=== PATIENT | female | born 1950 | race Caucasian/White ===

== ENCOUNTER → 2016-05-09 | Outpatient (CLI) | payer OTHER ==
--- NOTE | ~2016-05-09 | US77 ---
[facility] A Service of [facility] & [facility] RADIOLOGY TEXT RESULTS PATIENT: AMANDA NEWMAN LOCATION: [facility] : 48 UNIT #: [id number] AGE: [address]: Jules Burgess MD SEX: F ORDER DR: [id number] [facility] [address] [place], [place] [address] [id number] O MR#: [id number] Acc #: [id number] NAME: AMANDA NEWMAN : 1950 SEX: F STUDY DATE/TIME: 05/09/2016 15:19 UNIT: [facility] ROOM: STUDY DESCRIPTION: US Kidney Bilateral Complete Attending Physician: Jules Burgess Jr., M.D. Referring Physician: Jules Burgess Jr., M.D. Ordering Physician: Jules Burgess Jr., M.D. Primary Care Physician: Jules Burgess Jr., M.D. MEDICAL IMAGING REPORT This report is preliminary unless electronic signature is present EXAM Renal ultrasound bilateral, 05/09/2016 INDICATION 65-year-old female with elevated serum creatinine. Abnormal laboratory data performed 05/03/2016. BUN 39, creatinine 1.1, GFR 51. TECHNIQUE Sonographic imaging of the kidneys was performed bilaterally. Correlation is made with CTA 01/2016. FINDINGS The right kidney measures about 10.5 x 4.7 x 5.1 cm and the left kidney measures about 10.6 cm x 5.9 cm x 5.4 cm. No hydronephrosis or shadowing stone on either side. Incidental benign cyst in the lower pole posterior right kidney measures up to 2.7 cm. Two benign cyst in the left kidney, one in the midpole measures 1.5 cm and a second in the lower pole measures 1.2 cm. The bladder is unremarkable for degree of distension. Left ureteral jet noted. IMPRESSION 1. No hydronephrosis or shadowing stone on either side. 2. Benign cysts bilaterally, the largest of which is a 2.7 cm cyst in the right kidney corresponding to a previously identified cyst on CT. 3. Bladder unremarkable. Dictated by... Gera L. Yewell, M.D. THIS IS AN ELECTRONICALLY VERIFIED REPORT Gera Wheeler M.D. at 05/10/2016 7:36 AM PITA/leila [facility] A Service of [facility] & [facility] RADIOLOGY TEXT RESULTS PATIENT: AMANDA NEWMAN LOCATION: [facility] #: [id number] : 48 UNIT #: [id number] AGE: [address]: Jules Burgess MD SEX: F ORDER DR: TD: 05/10/2016 04:04 JOB #: [id number] MEDICAL IMAGING REPORT COPY
== END | disposition home or self-care (01) ==
LOC: CGUS 15:07
DX: R74.9 Abnormal serum enzyme level, unspecified (principal); N28.1 Cyst of kidney, acquired
CPT/HCPCS: 76770

== ENCOUNTER 2016-06-10 17:10 | Emergency (ER) | payer OTHER ==
[2016-06-10 16:50] LABS: URINE SOURCE CLEAN CATCH
[2016-06-10 17:09] LABS: URINE APPEARANCE CLEAR; URINE BILIRUBIN NEG (NEG); URINE BLOOD TRACE (NEG); URINE COLOR YELLOW; URINE GLUCOSE NEG (NEG); URINE KETONE NEG (NEG); URINE LEUKOCYTE ESTERASE TRACE (NEG); URINE NITRATE NEG (NEG); URINE PROTEIN NEG (NEG); URINE SPECIFIC GRAVITY 1.015 (1.003-1.035); URINE UROBILINOGEN 0.2 MG/DL (NEG)
[2016-06-10 17:11] LABS: URBCS1 AUWI 0-2 /[HPF] (0-2); URINE BACTERIA AUWI NEG (NEGATIVE); URINE SQUAMOUS EPITHELIAL CELL OCC /[HPF]
[2016-06-10 17:12] LABS: CULTURE INDICATED? NO
[2016-06-10 17:21] LABS: BUN/CREATININE RATIO 28.57; CALCIUM SERUM 9.3 mg/dL (8.4-10.2); CREATININE SERUM 0.7 mg/dL (0.6-1.4); GLOM FILT RATE Estimated 89.7 mL/min (>60); POTASSIUM 4.1 mmol/L (3.5-5.1)
== END 2016-06-10 18:22 | disposition home or self-care (01) ==
LOC: CED 17:10
PROVIDERS: Emergency Medicine
DX: R60.0 Localized edema (principal); I11.9 Hypertensive heart disease without heart failure; I51.9 Heart disease, unspecified; J98.4 Other disorders of lung
CPT/HCPCS: 36415; 80048; 81003; 83880; 99283

== ENCOUNTER → 2016-08-26 | Outpatient (CLI) | payer OTHER ==
--- NOTE | ~2016-08-26 | MY29 ---
[facility] A Service of [facility] RADIOLOGY TEXT RESULTS PATIENT: AMANDA NEWMAN LOCATION: [facility] : 48 UNIT #: [id number] AGE: [address]: Jules Burgess MD SEX: F ORDER DR: [id number] [facility] [address] [place], [place] [address] [id number] O MR#: [id number] Acc #: [id number] NAME: AMANDA NEWMAN : 1950 SEX: F STUDY DATE/TIME: 08/26/2016 16:20 UNIT: [facility] ROOM: STUDY DESCRIPTION: MY DOMINGO SCREENING W/ CAD BILAT Attending Physician: Jules Burgess Jr., M.D. Referring Physician: Jules Burgess Jr., M.D. Ordering Physician: Jules Burgess Jr., M.D. Primary Care Physician: Jules Burgess Jr., M.D. MEDICAL IMAGING REPORT This report is preliminary unless electronic signature is present EXAM Digital screening mammogram 08/26/2016, [facility] HISTORY 66-year-old woman, positive family history, first cousin. Annual screen. COMPARISON Mammograms date to 05/23/2006 with most recent 08/17/2015 FINDINGS Digital imaging of each breast was completed utilizing a two-view examination of each breast in craniocaudal and mediolateral-oblique projections. Review and interpretation of digital mammograms include a second review in conjunction with FDA-approved CAD device. There is a normal parenchymal presentation bilaterally consistent with the patient's age. There are no breast masses imaged and no parenchymal asymmetry is visualized. There are no suspicious microcalcifications and I see no focal architectural disturbance. IMPRESSION Negative screening digital mammogram. One-year followup recommended. Patients over the age of 40 are entered into a reminder system with target due date for the next mammogram. A result letter will also be sent to the patient. BIRADS: 1 Negative ADDENDUM Breast parenchyma is fatty replaced Dictated by... Devendra Earl M.D. [facility] A Service of [facility] RADIOLOGY TEXT RESULTS PATIENT: AMANDA NEWMAN LOCATION: [facility] : 48 UNIT #: [id number] AGE: [address]: Jules Burgess MD SEX: F ORDER DR: THIS IS AN ELECTRONICALLY VERIFIED REPORT Devendra Earl M.D. at 08/29/2016 3:59 PM JERRY/brina TD: 08/29/2016 15:12 JOB #: [id number] MEDICAL IMAGING REPORT Page 1 of 1 COPY
== END | disposition home or self-care (01) ==
LOC: CWCC 08-19 16:45
DX: Z12.31 Encounter for screening mammogram for malignant neoplasm of breast (principal); Z80.3 Family history of malignant neoplasm of breast; R92.8 Other abnormal and inconclusive findings on diagnostic imaging of breast
CPT/HCPCS: G0202